=== PATIENT | male | born 1955 | race Caucasian/White ===

== ENCOUNTER → 2016-09-08 | Outpatient (CLI) | payer BC | LOC: RAD 07:29 | PROVIDERS: ATTEND Internal Medicine Gastroenterology | DX: R11.11 Vomiting without nausea (principal) | CPT/HCPCS: 78264; A9541 ==

== ENCOUNTER → 2016-09-10 | Outpatient (CLI) | payer BC | LOC: RAD 07:30 | PROVIDERS: ATTEND Internal Medicine Gastroenterology | DX: R11.11 Vomiting without nausea (principal) | CPT/HCPCS: 74249 ==

== ENCOUNTER 2016-10-20 13:18 | Observation (INO) | payer BC ==
[2016-10-20] MEDS ORDERED: LORAZEPAM INJ 2 MG/1 ML VIAL ONE (14:00)
[2016-10-20] MEDS ORDERED: REGADENOSON INJ 0.4 MG/5 ML DISP.SYRIN IV ONE (14:11)
[2016-10-20] MEDS ORDERED: ASPIRIN 81 MG TABLET, CHEWABLE PO ONE (14:13)
--- NOTE | 2016-10-20 14:13 | ER Document Report ---
ED General - General Chief Complaint: Chest Pain Stated Complaint: WEAKNESS Time seen by provider: 14:11 Mode of Arrival: Wheelchair Information source: Patient, Relative Notes: This is a 61-year-old man with a history of diabetes, syncope that is brought into the emergency room after experiencing an episode of chest pain, nausea, generalized weakness. The patient's states that they were at [employer] and she turned around when they were on line and the patient was holding his chest and stated that he had to "get to the truck". Patient was noticed to have stuttering speech and a tremor to the right upper extremity (no loss of consciousness, was talking the whole time). Patient's states that at baseline, he does ambulate with a cane, has an unsteady gait, is prone to fainting and has had tremors in the past (although not this bad). Patient has had a neurology workup including an EEG which showed no evidence of seizures. He does have an appointment with a neurologist tomorrow. They deny any fever, chills or vomiting. TRAVEL OUTSIDE OF THE [place] IN LAST 30 DAYS: No - HPI Onset: Just prior to arrival Onset/Duration: Sudden Quality of pain: Achy Severity: None Pain Level: Denies Associated symptoms: Chest pain. denies: Fever, Shortness of breath Exacerbated by: Denies Relieved by: Denies Similar symptoms previously: No Recently seen / treated by doctor: No - Related Data Allergies/Adverse Reactions: No Known Allergies Allergy (Verified 10/20/16 13:47) Home Medications: Current Home Medications Bupropion HCl [Wellbutrin Sr 100 mg Tablet] 300 mg PO Q12 10/20/16 [History] Cyanocobalamin (Vitamin B-12) [Vitamin B-12] 1,000 mcg SL DAILY 10/20/16 [ History] Duloxetine HCl [Cymbalta] 60 mg PO TID 10/20/16 [History] Ergocalciferol (Vitamin D2) [Vitamin D2] 50,000 units PO OQUENDO@1000 10/20/16 [ History] Ferrous Sulfate [Feosol 325 mg Tablet] 325 mg PO BIDPCBS 10/20/16 [History] Fluticasone Propionate [Flonase Nasal [place] 50 Mcg/[place] 16 gm] 1 spray NASL DAILY 10/20/16 [History] Mercaptopurine [Purinethol 50 mg Tablet] 75 mg PO DAILY 10/20/16 [History] Mesalamine [Delzicol] 800 mg PO BID 10/20/16 [History] Metformin HCl [Metformin HCl ER] 1,000 mg PO BIDPCBS 10/20/16 [History] Metoclopramide HCl [Reglan] 5 mg PO TIDHS 10/20/16 [History] Omeprazole 20 mg PO Q12 10/20/16 [History] Oxycodone HCl/Acetaminophen [Oxycodone-Acetaminophen 10-325] 1 each PO TIDP PRN 10/20/16 [History] Pregabalin [Lyrica] 200 mg PO Q8 10/20/16 [History] Tamsulosin HCl [Flomax 0.4 mg Cap.sr] 0.4 mg PO Q12 10/20/16 [History] Past Medical History - General Information source: Patient - Social History Smoking Status: Current Every Day Smoker Cigarette use (# per day): Yes - half a pack per day Chew tobacco use (# tins/day): No Smoking Education Provided: No Frequency of alcohol use: None Drug Abuse: None Lives with: Family Family History: None Patient has suicidal ideation: No Patient has homicidal ideation: No - Past Medical History Cardiac Medical History: Reports: Hx Hypercholesterolemia Neurological Medical History: Reports: Other - Tremors, gait instability ( followed up by neurologist) Endocrine Medical History: Reports: Hx Diabetes Mellitus Type 2 Renal/ Medical History: Reports: None Malignancy Medical History: Reports None GI Medical History: Reports: None Musculoskeltal Medical History: Reports Hx Arthritis Psychiatric Medical History: Reports: Hx Depression Past Surgical History: Reports: Other - Laser surgery on the eyes, cataracts. - Immunizations Hx Diphtheria, Pertussis, Tetanus Vaccination: Yes Review of Systems - Review of Systems Constitutional: denies: Chills, Fever EENT: No symptoms reported Cardiovascular: See HPI Respiratory: No symptoms reported Gastrointestinal: No symptoms reported Genitourinary: No symptoms reported Male Genitourinary: No symptoms reported Musculoskeletal: No symptoms reported Skin: No symptoms reported Hematologic/Lymphatic: No symptoms reported Neurological/Psychological: See HPI Physical Exam - Vital signs Vitals: Resp Pulse Ox 14 97 10/20/16 13:43 10/20/16 13:43 Notes: Physical exam: GENERAL: 61-year-old man, alert, stuttering, answering questions. He is oriented 3. HEAD: Atraumatic, normocephalic. EYES: Pupils equal round and reactive to light, extraocular movements intact, sclera anicteric, conjunctiva are normal. ENT: TMs normal, nares patent, oropharynx clear without exudates. Moist mucous membranes. NECK: Normal range of motion, supple without lymphadenopathy or JVD. LUNGS: Breath sounds clear to auscultation bilaterally and equal. No wheezes rales or rhonchi. HEART: Regular rate and rhythm without murmurs, rubs or gallops. ABDOMEN: Soft, normoactive bowel sounds. No tenderness to palpation. No guarding, no rebound. No masses appreciated. EXTREMITIES: Normal range of motion, no pitting or edema. No clubbing or cyanosis. NEUROLOGICAL: Cranial nerves II through XII: Stuttering words, states his has slurred speech. Moving all extremities. Good news agent. PSYCH: Normal mood, normal affect. SKIN: Warm, Dry, normal turgor, no rashes or lesions noted. Course - Vital Signs Vital signs: Temp Pulse Resp BP Pulse Ox 97.5 F 70 18 152/90 H 97 10/20/16 23:17 10/20/16 23:17 10/20/16 23:17 10/20/16 23:17 10/20/16 23:17 - Laboratory Result Diagrams: 10/20/16 13:35 10/20/16 13:35 Laboratory results interpreted by me: 10/20/16 10/20/16 10/20/16 13:35 13:35 13:35 RBC 3.71 L Hgb 12.7 L Hct 36.9 L MCV 99 H MCH 34.2 H RDW 15.8 H Lymphocytes % 8.9 L Magnesium 1.2 L* Creatine Kinase 38 L - Diagnostic Test Radiology reviewed: Image reviewed, Reports reviewed - Chest x-ray shows no infiltrates. CT of the head shows no acute changes. - EKG Interpretation by Me Rate: Normal Rhythm: NSR - EKG shows normal sinus rhythm with a ventricular rate of 95, no acute ST-T wave changes Discharge - Discharge Clinical Impression: chest pain, hypomagnesemia Condition: Stable Disposition: ADMITTED OBSERVATION Admitting Provider: Hospitalist - Dr. Reddy Unit Admitted: Telemetry
[2016-10-20] MEDS ORDERED: LORAZEPAM INJ 2 MG/1 ML VIAL IV ONE (14:15)
[2016-10-20 14:38] LABS: ALANINE AMINOTRANSFERASE 44 U/L (21-72); ALBUMIN 3.9 g/dL (3.5-5.0); ALKALINE PHOSPHATASE 125 U/L (38-126); ANION GAP 13 (5-19); ASPARTATE AMINO TRANSFERASE 40 U/L (17-59); BILIRUBIN,TOTAL 0.7 mg/dL (0.2-1.3); BLOOD UREA NITROGEN 18 mg/dL (7-20); CALCIUM 10.1 mg/dL (8.4-10.2); CARBON DIOXIDE 25 mmol/L (22-30); CHLORIDE 104 mmol/L (98-107); CREATINE KINASE 38 U/L (55-170); CREATININE RESULT 0.87 mg/dL (0.52-1.25); GLUCOSE 102 mg/dL (75-110); POTASSIUM 4.9 mmol/L (3.6-5.0); SODIUM 142.4 mmol/L (137-145); TOTAL PROTEIN 6.5 g/dL (6.3-8.2)
[2016-10-20 14:48] LABS: ABSOLUTE EOSINOPHILS # (AUTO) 0.1 10^3/uL (0.0-0.6); ABSOLUTE LYMPHOCYTES (AUTO) 0.5 10^3/uL (0.5-4.7); EOSINOPHILS % (AUTO) 1.3 % (0-6); HEMATOCRIT 36.9 % (37.9-51.0); HEMOGLOBIN 12.7 g/dL (13.5-17.0); HGB HCT DIFFERENCE 1.2; MEAN CORPUSCULAR HEMOGLOBIN 34.2 pg (27.0-33.4)
[2016-10-20] MEDS ORDERED: NORMAL SALINE 1000 ML 1,000 ML IV PRN ×2 (14:49→18:33)
[2016-10-20 14:50] LABS: CREATINE KINASE MB 0.34 ng/mL (<4.55)
[2016-10-20 14:53] LABS: ABSOLUTE MONOCYTES (AUTO) 0.7 10^3/uL (0.1-1.4); ABSOLUTE NEUT (AUTO) 3.9 10^3/uL (1.7-8.2); BASOPHILS % (AUTO) 0.3 % (0-2); LYMPHOCYTES % (AUTO) 8.9 % (13-45); MEAN CORPUSCULAR HGB CONC 34.4 g/dL (32.0-36.0); MEAN CORPUSCULAR VOLUME 99 fl (80-97); MONOCYTES % (AUTO) 12.7 % (3-13); RED BLOOD COUNT 3.71 10^6/uL (4.35-5.55); RED CELL DISTRIBUTION WIDTH 15.8 % (11.5-14.0); SEGMENTED NEUTROPHILS % (AUTO) 76.8 % (42-78); TROPONIN I < 0.012 ng/mL; WHITE BLOOD COUNT 5.1 10^3/uL (4.0-10.5)
[2016-10-20] MEDS: MAGNESIUM SULFATE/D5W 100 ML IV SCH ×2 (15:07→16:35)
[2016-10-20] MEDS ORDERED: MAGNESIUM SULFATE/D5W 100 ML IV SCH (18:30)
[2016-10-20] MEDS ORDERED: ONDANSETRON 4 MG TAB.RAPDIS PO PRN (18:33)
[2016-10-20] MEDS ORDERED: MORPHINE SULFATE 10 MG/ML INJ IV PRN (18:33)
[2016-10-20] MEDS ORDERED: MAG HYDROX/AL HYDROX/SIMETH SUSP 30 ML UDCUP PO PRN (18:33)
[2016-10-20] MEDS ORDERED: NITROGLYCERIN 0.4 MG/TAB 25 TAB/BOTTLE SL PRN (18:33)
[2016-10-20] MEDS ORDERED: INSULIN LISPRO 100 UNIT/ML 3 ML VIAL SUBCUT PRN (18:40)
[2016-10-20] MEDS ORDERED: GLUCAGON,HUMAN RECOMB 1 MG INJ IM PRN (18:40)
[2016-10-20] MEDS ORDERED: DEXTROSE 50%-WATER 25 GM/50 ML DISP.SYRIN IV PRN ×2 (18:40)
[2016-10-20] MEDS ORDERED: DEXTROSE 40% GEL 15 GM TUBE PO PRN ×2 (18:40)
[2016-10-20] MEDS ORDERED: LANSOPRAZOLE 15 MG TAB.RAP.DR PO ONE (19:15)
[2016-10-20 19:57] LABS: CREATINE KINASE MB 0.31 ng/mL (<4.55)
[2016-10-20 19:58] LABS: TROPONIN I < 0.012 ng/mL
[2016-10-20] MEDS ORDERED: NICOTINE 21 MG/24 HR PATCH.TD24 TD ONE (20:00)
--- NOTE | 2016-10-20 20:08 | EKG REPORT ---
SEVERITY:- BORDERLINE ECG - SINUS RHYTHM PROBABLE LEFT ATRIAL ABNORMALITY BORDERLINE LEFT AXIS DEVIATION : Confirmed by: Kapil Ramírez MD 20-Oct-2016 20:08:14
[2016-10-20] MEDS ORDERED: (PENDING PHARMACY ID) (Oxycodone Hcl/Acetaminophen [Oxycodone-Acetaminophen 10-325] 1 EACH PO PRN (23:15)
--- NOTE | 2016-10-20 23:29 | PDOC H&P ---
History of Present Illness Admission Date/PCP: 10/20/16 18:33 ZENA DOWD History of Present Illness: SURYA JEROME is a 61 year old male with past medical history of ulcerative colitis, diabetes mellitus, hyperlipidemia, neuropathy, anemia, previous CVA who presents to the emergency department with chest pain. Patient reports that he was walking in [place] when he began having stabbing chest pain that then turned and pressure complaint nausea and without diaphoresis or shortness of breath. Patient reports that he began having shakes of that he couldn't stand. He then reports that he did not loose consciousness. He reports he's been having dizzy spells that have been evaluated over the past year by both cardiology as well as neurology. She reports a prior stress test approximately one year ago that was negative. reports that he's also had echocardiogram , stress test, Holter monitor, EEG. Patient is referred to the hospital service for evaluation of chest pain. Past Medical History Past Medical History: ulcerative colitis, diabetes mellitus, hyperlipidemia, neuropathy, anemia, previous CVA Cardiac Medical History: Reports: Hyperlipidema Endocrine Medical History: Reports: Diabetes Mellitus Type 2 Musculoskeltal Medical History: Reports: Arthritis Psychiatric Medical History: Reports: Depression Past Surgical History Past Surgical History: Eye surgery Social History Smoking Status: Current Some Day Smoker Cigarettes Packs Per Day: 1 Frequency of Alcohol Use: None Amount of Alcoholic Beverages Per Day: history of alcohol abuse quit in 1997 Hx Recreational Drug Use: No Drugs: None Hx Prescription Drug Abuse: No - Advance Directive Resuscitation Status: Full Code Surrogate healthcare decision maker:: Marcela Jerome, Family History Family History: CAD, DM, Malignancy Parental Family History Reviewed: Yes Children Family History Reviewed: Yes Sibling(s) Family History Reviewed.: Yes Medication/Allergy Home Medications: Bupropion HCl [Wellbutrin Sr 100 mg Tablet] 300 mg PO Q12 10/20/16 Cyanocobalamin (Vitamin B-12) [Vitamin B-12] 1,000 mcg SL DAILY 10/20/16 Duloxetine HCl [Cymbalta] 60 mg PO TID 10/20/16 Ergocalciferol (Vitamin D2) [Vitamin D2] 50,000 units PO OQUENDO@1000 10/20/16 Ferrous Sulfate [Feosol 325 mg Tablet] 325 mg PO BIDPCBS 10/20/16 Fluticasone Propionate [Flonase Nasal [place] 50 Mcg/[place] 16 gm] 1 spray NASL DAILY 10/20/16 Mercaptopurine [Purinethol 50 mg Tablet] 75 mg PO DAILY 10/20/16 Mesalamine [Delzicol] 800 mg PO BID 10/20/16 Metformin HCl [Metformin HCl ER] 1,000 mg PO BIDPCBS 10/20/16 Metoclopramide HCl [Reglan] 5 mg PO TIDHS 10/20/16 Omeprazole 20 mg PO Q12 10/20/16 Oxycodone HCl/Acetaminophen [Oxycodone-Acetaminophen 10-325] 1 each PO TIDP PRN 10/20/16 Pregabalin [Lyrica] 200 mg PO Q8 10/20/16 Tamsulosin HCl [Flomax 0.4 mg Cap.sr] 0.4 mg PO Q12 10/20/16 Allergies/Adverse Reactions: No Known Allergies Allergy (Verified 10/20/16 13:47) Review of Systems Constitutional: PRESENT: weakness. ABSENT: chills, fever(s), headache(s), weight gain, weight loss Eyes: ABSENT: visual disturbances Ears: ABSENT: hearing changes Cardiovascular: PRESENT: as per HPI, chest pain. ABSENT: dyspnea on exertion, edema, orthropnea, palpitations Respiratory: ABSENT: cough, dyspnea, hemoptysis, sputum Gastrointestinal: PRESENT: constipation, diarrhea. ABSENT: abdominal pain, bloating, hematemesis, hematochezia, melena, nausea, vomiting Genitourinary: ABSENT: dysuria, hematuria Musculoskeletal: ABSENT: joint swelling Integumentary: ABSENT: rash, wounds Neurological: PRESENT: dizziness, numbness, tremor(s). ABSENT: abnormal gait, abnormal speech, confusion, focal weakness, syncope Psychiatric: ABSENT: anxiety, depression, homidical ideation, suicidal ideation Endocrine: ABSENT: cold intolerance, heat intolerance, polydipsia, polyuria Hematologic/Lymphatic: ABSENT: easy bleeding, easy bruising Physical Exam Vital Signs: Temp Pulse Resp BP Pulse Ox 97.6 F 69 14 141/85 H 95 10/20/16 18:34 10/20/16 18:34 10/20/16 20:31 10/20/16 20:46 10/20/16 20:46 Intake & Output 10/19/16 10/20/16 10/21/16 06:59 06:59 06:59 Weight 74.1 kg General appearance: PRESENT: no acute distress, well-developed, well-nourished Head exam: PRESENT: atraumatic, normocephalic Eye exam: PRESENT: conjunctiva pink, EOMI, PERRLA. ABSENT: scleral icterus Ear exam: PRESENT: normal external ear exam, TM's normal bilaterally Mouth exam: PRESENT: dry mucosa, tongue midline Teeth exam: PRESENT: poor dentation Neck exam: ABSENT: JVD, lymphadenopathy, thyromegaly, tracheal deviation Respiratory exam: PRESENT: clear to auscultation jeffry, prolonged expiratory phas , unlabored. ABSENT: accessory muscle use, crackles, rales, rhonchi, tachypnea , wheezes Cardiovascular exam: PRESENT: RRR, +S1, +S2. ABSENT: diastolic murmur, gallop, rubs, systolic murmur Pulses: PRESENT: normal dorsalis pedis pul Vascular exam: PRESENT: normal capillary refill GI/Abdominal exam: PRESENT: normal bowel sounds, soft. ABSENT: distended, firm , guarding, mass, organolmegaly, rebound, rigid, tenderness Rectal exam: PRESENT: deferred Extremities exam: PRESENT: full ROM. ABSENT: calf tenderness, clubbing, pedal edema Neurological exam: PRESENT: alert, awake, oriented to person, oriented to place , oriented to time, oriented to situation, CN II-XII grossly intact. ABSENT: motor sensory deficit Psychiatric exam: PRESENT: appropriate affect, normal mood. ABSENT: homicidal ideation, suicidal ideation Skin exam: PRESENT: dry, intact, warm. ABSENT: cyanosis, rash Results Laboratory Results: 10/20/16 19:15 CK-MB (CK-2) 0.31 Troponin I < 0.012 Impressions: Chest X-Ray 10/20/16 00:00 IMPRESSION: NO ACUTE RADIOGRAPHIC FINDING IN THE CHEST. Head CT 10/20/16 00:00 IMPRESSION: No acute intracranial abnormality identified. Chronic microvascular ischemic disease changes noted in the supratentorial white matter. Probable old lacunar infarct in the right frontal lobe. Overall CTs not significant change from prior study. Assessment & Plan - Diagnosis (1) Chest pain Qualifiers: Chest pain type: precordial pain Qualified Code(s): R07.2 - Precordial pain Is this a current diagnosis for this admission?: YesPlan: We'll place patient on observation and rule out for acute coronary syndrome. Will obtain nuclear stress test tomorrow in light of patient's underlying diabetes, hyperlipidemia, tobacco abuse and will check an FLP. Place patient on a kalyani and lisinopril as tolerated. Aspirin. Oxygen. Morphine. (2) Ulcerative colitis Qualifiers: Ulcerative colitis location: unspecified ulcerative colitis location Digestive disease complication type: unspecified complication Qualified Code(s): K51.919 - Ulcerative colitis, unspecified with unspecified complications Is this a current diagnosis for this admission?: YesPlan: Continue patient on mesalamine and mercaptopurine. (3) Anemia Qualifiers: Anemia type: B12 deficiency Vitamin B12 deficiency anemia type: unspecified B12 deficiency Qualified Code(s): D51.9 - Vitamin B12 deficiency anemia, unspecified Is this a current diagnosis for this admission?: YesPlan: Patient with known history of B-12 and iron deficiency anemia. Home medications (4) Chronic pain syndrome Is this a current diagnosis for this admission?: YesPlan: Continue patient's home medications. Patient reports underlying neuropathy. 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 Siding scale insulin. Diabetic diet. (7) Hypomagnesemia Is this a current diagnosis for this admission?: YesPlan: Likely secondary to chronic GI losses. Will give IV magnesium. Monitor for arrhythmia. - Time Time Spent: 50 to 70 Minutes Medications reviewed and adjusted accordingly: Yes Anticipated discharge: Home Within: within 24 hours - Inpatient Certification Based on my medical assessment, after consideration of the patient's comorbidities, presenting symptoms, or acuity I expect that the services needed warrant INPATIENT care.: No I certify that my determination is in accordance with my understanding of Medicare's requirements for reasonable and necessary INPATIENT services [42 CFR 412.3e].: No Post Hospital Care: D/C [place] Documentation
[2016-10-21 01:43] LABS: CREATINE KINASE MB 0.31 ng/mL (<4.55)
[2016-10-21 01:52] LABS: TROPONIN I < 0.012 ng/mL
[2016-10-21] MEDS ORDERED: MAGNESIUM SULFATE/D5W 1 GM/100 ML RTUPB IV ONE (02:15)
[2016-10-21] MEDS ORDERED: LANSOPRAZOLE 15 MG TAB.RAP.DR PO SCH (06:00)
[2016-10-21] MEDS: BUPROPION HCL 100 MG TABLET PO SCH ×2 (06:46→13:55)
[2016-10-21] MEDS: PREGABALIN 100 MG CAPSULE PO SCH ×2 (06:47→13:55)
[2016-10-21] MEDS ORDERED: OXYCODONE-ACETAMINOPHEN 5-325 MG TABLET PO PRN (07:13)
[2016-10-21] MEDS ORDERED: OXYCODONE HCL IR 5 MG TABLET PO PRN (07:14)
[2016-10-21 07:40] LABS: ANION GAP 12 (5-19); BLOOD UREA NITROGEN 17 mg/dL (7-20); CALCIUM 9.7 mg/dL (8.4-10.2); CARBON DIOXIDE 24 mmol/L (22-30); CHLORIDE 105 mmol/L (98-107); CHOLESTEROL 152.09 mg/dL (0-200); CREATINE KINASE 40 U/L (55-170); CREATININE RESULT 0.98 mg/dL (0.52-1.25); Direct HDL 38 mg/dL (>40); GLUCOSE 121 mg/dL (75-110); MAGNESIUM 1.9 mg/dL (1.6-2.3); POTASSIUM 4.7 mmol/L (3.6-5.0); SODIUM 141.1 mmol/L (137-145); TRIGLYCERIDES 219 mg/dL (<150)
[2016-10-21 07:51] LABS: CREATINE KINASE MB 0.31 ng/mL (<4.55); DIRECT LDL 82 mg/dL (<100)
[2016-10-21 07:52] LABS: TROPONIN I < 0.012 ng/mL; VLDL CHOLESTEROL 43.8 mg/dL (10-31)
[2016-10-21] MEDS ORDERED: METFORMIN HCL 500 MG TABLET PO SCH (08:00)
--- NOTE | 2016-10-21 08:27 | EKG REPORT ---
SEVERITY:- ABNORMAL ECG - SINUS RHYTHM SUPRAVENTRICULAR BIGEMINY : Confirmed by: Kapil Ramírez MD 21-Oct-2016 08:27:33
[2016-10-21] MEDS ORDERED: FERROUS SULFATE 325 MG TABLET PO SCH (09:00)
[2016-10-21] MEDS ORDERED: (PENDING PHARMACY ID) (Metformin Hcl [Metformin Hcl Er] 1,000 MG) PO SCH (09:00)
[2016-10-21] MEDS: METOCLOPRAMIDE HCL 10 MG TABLET PO SCH ×2 (09:23→13:54)
[2016-10-21] MEDS: DULOXETINE HCL 30 MG CAPSULE.DR PO SCH ×2 (09:26→13:55)
[2016-10-21] MEDS ORDERED: TAMSULOSIN HCL 0.4 MG CAP.SR.24H PO SCH (10:00)
[2016-10-21] MEDS ORDERED: ASPIRIN 325 MG TABLET, ENT COATED PO SCH (10:00)
[2016-10-21] MEDS ORDERED: MESALAMINE 400 MG CAPSULE.DR PO SCH (10:00)
[2016-10-21] MEDS ORDERED: NICOTINE 21 MG/24 HR PATCH.TD24 TD SCH (10:00)
[2016-10-21] MEDS ORDERED: CYANOCOBALAMIN (VITAMIN B-12) 1,000 MCG TABLET PO SCH (10:00)
[2016-10-21] MEDS ORDERED: BUPROPION HCL 150 MG PO SCH (10:00)
[2016-10-21] MEDS ORDERED: MERCAPTOPURINE 50 MG TABLET PO SCH (10:00)
[2016-10-21] MEDS ORDERED: FLUTICASONE NASAL SPRAY 50 MCG/SPRY 120 SPRAY/16 GM NASL SCH (10:00)
--- NOTE | 2016-10-21 14:09 | DRAGON STRESS TEST REPORT ---
INTRAVENOUS LEXISCAN CARDIOLITE STRESS TEST USING SINGLE PHOTON EMMISION COMPUTERIZED TOMOGRAPHIC. DATE OF PROCEDURE: October 21, 2016 INDICATION : Chest pain CARDIAC RISK FACTORS: Diabetes, dyslipidemia, tobacco abuse, family history of CAD RESTING EKG: Sinus rhythm, no Baseline ST segment changes noted STRESS EKG: No significant changes noted with LexiScan bolus REASON FOR TERMINATION: Protocol. PROCEDURE REPORT: Baseline heart rate 63 beats per minute with blood pressure of 158/95. Patient had no significant complaints. Heart rate at 2 minutes post bolus 78 with a blood pressure of 160/94. 3 minutes post bolus heart rate 75 with blood pressure of 167/87. No significant EKG changes were noted. Patient had no significant complaints during the procedure or postprocedure. CONCLUSIONS: Normal EKG and hemodynamic response to IV LexiScan. NUCLEAR DATA: At rest the patient was given 10.38 millicuries of technetium 99 sestamibi injected intravenously. As per protocol rest gated SPECT images were obtained. Subsequently the patient was given intravenous LexiScan at a dose of 0.4 mg in 5 mL intravenously, followed by flush with normal saline. Subsequently the stress dose of 32.3 millicuries of technetium 99 sestamibi was injected intravenously. As per protocol stress gated images were obtained. NUCLEAR INTERPRETATION: Both raw and processed data were used for interpretation. Visual, qualitative, computer-generated quantitative data was used. There was good myocardial uptake of technetium compound. Motion artifact and soft tissue attenuations were noted. Increased visceral uptake was noted. No definitive areas of transient perfusion defect noted. No definitive areas of fixed perfusion defect or scars noted. Borderline decreased uptake is noted in the basal anterior wall and is felt to be related to motion artifact. EKG gated imaging showed LV EF at 55 %, rest and stress gated EF similar visually. T. I D. ratio was 0.94. Lung heart ratio noted to be within normal limits 0.29. No significant extracardiac and abnormal radiotracer activities were noted. RV free wall uptake was noted to be WNL. IMPRESSION: Also refer to comments under nuclear interpretation. Also test results needs to be interpreted in the context of pretest probability. 1. There is no definitive scintigraphic evidence of LexiScan induced myocardial ischemia. 2. There is no definitive scintigraphic evidence of myocardial infarction/scar. 3. EKG gated imaging shows left ejection fraction of approximately 55 %. 4. Clinical correlation requested as occasionally single vessel disease or balanced ischemia could be missed. In approximately 10% of the cases Lexiscan may not cause adequate vasodilatory stress. RECOMMENDATIONS: Aggressive risk factor modification, medical therapy. Clinical correlation with echocardiogram derived ejection fraction. Inability to exercise by itself can lead to increased cardiovascular event risks. Consider cardiology consultation if clinically indicated. I AM AVAILABLE FOR CARDIOLOGY CONSULTATION AND FOLLOWUP IF REQUESTED BY PMD Victoria George M.D., ZULAY Capacity Planner kelp gatherer, Board certified in cardiovascular diseases, Nuclear cardiology, Echocardiography Cardiac CT and cardiac MRI Ph. [phone] [facility]
[2016-10-21 16:33] VITALS: BP 151/69
--- NOTE | 2016-10-21 19:18 | PDOC DISCHARGE SUMMARY ---
General - Admit/Disc Date/PCP Admission Date/Primary Care Provider: 10/20/16 18:33 ZENA DOWD Discharge Date: 10/21/16 - Discharge Diagnosis (1) Chest pain Is this a current diagnosis for this admission?: Yes (2) Ulcerative colitis Is this a current diagnosis for this admission?: Yes (3) Anemia Is this a current diagnosis for this admission?: Yes (4) Chronic pain syndrome Is this a current diagnosis for this admission?: Yes (5) BPH (benign prostatic hyperplasia) Is this a current diagnosis for this admission?: Yes (6) Diabetes mellitus Is this a current diagnosis for this admission?: Yes (7) Hypomagnesemia Is this a current diagnosis for this admission?: Yes - Additional Information Resuscitation Status: Full Code Discharge Diet: Cardiac, Diabetic Discharge Activity: Activity As Tolerated Home Medications: Cyanocobalamin (Vitamin B-12) [Vitamin B-12] 1,000 mcg SL DAILY 10/20/16 Duloxetine HCl [Cymbalta] 60 mg PO TID 10/20/16 Ergocalciferol (Vitamin D2) [Vitamin D2] 50,000 units PO OQUENDO@1000 10/20/16 Ferrous Sulfate [Feosol 325 mg Tablet] 325 mg PO BIDPCBS 10/20/16 Fluticasone Propionate [Flonase Nasal [place] 50 Mcg/[place] 16 gm] 1 spray NASL DAILY 10/20/16 Mercaptopurine [Purinethol 50 mg Tablet] 75 mg PO DAILY 10/20/16 Mesalamine [Delzicol] 800 mg PO BID 10/20/16 Metformin HCl [Metformin HCl ER] 1,000 mg PO BIDPCBS 10/20/16 Metoclopramide HCl [Reglan] 5 mg PO TIDHS 10/20/16 Omeprazole 20 mg PO Q12 10/20/16 Oxycodone HCl/Acetaminophen [Oxycodone-Acetaminophen 10-325] 1 each PO TIDP PRN 10/20/16 Pregabalin [Lyrica] 200 mg PO Q8 10/20/16 Tamsulosin HCl [Flomax 0.4 mg Cap.sr] 0.4 mg PO Q12 10/20/16 History of Present Illness History of Present Illness: SURYA HANNA is a 61 year old male with past medical history of ulcerative colitis, diabetes mellitus, hyperlipidemia, neuropathy, anemia, previous CVA who presents to the emergency department with chest pain. Patient reports that he was walking in [employer] when he began having stabbing chest pain that then turned and pressure complaint nausea and without diaphoresis or shortness of breath. Patient reports that he began having shakes of that he couldn't stand. He then reports that he did not loose consciousness. He reports he's been having dizzy spells that have been evaluated over the past year by both cardiology as well as neurology. She reports a prior stress test approximately one year ago that was negative. reports that he's also had echocardiogram , stress test, Holter monitor, EEG. Patient is referred to the hospital service for evaluation of chest pain. Hospital Course Hospital Course: Patient was admitted and ruled out for acute coronary syndrome. Patient had a nuclear stress test today which was found to be negative. Patient had improvement of his weakness with repletion of his magnesium. Discussed with patient importance of a good diet and stopping smoking. Discussed patient risk factor modification. For patient's extensive history of dizziness, have discussed with patient continuing his outpatient workup. Patient was noted to be on 600 mg of Wellbutrin daily patient was advised to take more than no more than 450 mg total in 24 hours. Patient was discharged in stable condition to his family. Physical Exam Vital Signs: Temp Pulse Resp BP Pulse Ox 97.7 F 89 20 151/69 H 97 10/21/16 16:28 10/21/16 16:28 10/21/16 16:28 10/21/16 16:28 10/21/16 16:28 Intake & Output 10/20/16 10/21/16 10/22/16 06:59 06:59 06:59 Intake Total 240 Output Total 800 Balance -560 Weight 74.1 kg Exam: General: Awake alert and oriented x3, no acute respiratory distress HEENT: AT/NC, PERRL, EOMI, oropharynx is moist, pink, no scleral icterus, no conjunctival injection Neck: No JVD, trachea midline Chest: Clear to auscultation bilaterally, no wheezes rhonchi or rales CV: Regular rate and rhythm, normal S1 and S2, no murmur, rub, or gallop Abdomen: Soft, nontender to palpation, nondistended, active bowel sounds; no rebound, rigidity, or guarding Extremities: No cyanosis, clubbing or edema Neuro: Cranial nerves II through XII are grossly intact without focal deficits; awake alert and oriented x3 Psych: Unusual mood and affect Results Laboratory Results: 10/21/16 07:03 10/21/16 07:03 Sodium 141.1 Potassium 4.7 Chloride 105 Carbon Dioxide 24 Anion Gap 12 BUN 17 Creatinine 0.98 Est GFR ( Amer) > 60 Est GFR (Non-Af Amer) > 60 Glucose 121 H Calcium 9.7 Magnesium 1.9 Triglycerides 219 H Cholesterol 152.09 LDL Cholesterol Direct 82 VLDL Cholesterol 43.8 H HDL Cholesterol 38 L 10/20/16 10/21/16 10/21/16 19:15 01:01 07:03 Creatine Kinase 40 L CK-MB (CK-2) 0.31 0.31 Troponin I < 0.012 < 0.012 10/21/16 07:03 Creatine Kinase CK-MB (CK-2) 0.31 Troponin I < 0.012 Impressions: Chest X-Ray 10/20/16 00:00 IMPRESSION: NO ACUTE RADIOGRAPHIC FINDING IN THE CHEST. Head CT 10/20/16 00:00 IMPRESSION: No acute intracranial abnormality identified. Chronic microvascular ischemic disease changes noted in the supratentorial white matter. Probable old lacunar infarct in the right frontal lobe. Overall CTs not significant change from prior study. Qualifiers PATEINT BEING DISCHARGED WITH ANY OF THE FOLLOWING DIAGNOSIS?: No Plan Time Spent: Greater than 30 Minutes
--- NOTE | 2016-10-22 09:07 | EKG REPORT ---
SEVERITY:- OTHERWISE NORMAL ECG - SINUS RHYTHM BORDERLINE LEFT AXIS DEVIATION : Confirmed by: Kapil Ramírez MD 22-Oct-2016 09:06:10
[2016-10-24] MEDS ORDERED: ERGOCALCIFEROL (VITAMIN D2) 50000 UNIT (1.25 MG) CAPSULE PO SCH (10:00)
== END 2016-10-21 17:15 | disposition home or self-care (01) ==
LOC: ER 13:18 → EH 18:33 → UNDOADMOB 18:39 → EH 18:39 → 4W 21:40
PROVIDERS: ADMIT Family Medicine; ATTEND Family Medicine
PROC: 3E033GC Introduction of Other Therapeutic Substance into Peripheral Vein, Percutaneous Approach (ICD-10-PCS; principal; 2016-10-20)
PROC: 3E033GC Introduction of Other Therapeutic Substance into Peripheral Vein, Percutaneous Approach (ICD-10-PCS; 2016-10-20)
PROC: 3E033GC Introduction of Other Therapeutic Substance into Peripheral Vein, Percutaneous Approach (ICD-10-PCS; 2016-10-20)
PROC: 3E0337Z Introduction of Electrolytic and Water Balance Substance into Peripheral Vein, Percutaneous Approach (ICD-10-PCS; 2016-10-20)
DX: R07.9 Chest pain, unspecified (principal); K51.90 Ulcerative colitis, unspecified, without complications; G89.4 Chronic pain syndrome; N40.0 Benign prostatic hyperplasia without lower urinary tract symptoms; E11.40 Type 2 diabetes mellitus with diabetic neuropathy, unspecified; E83.42 Hypomagnesemia; Z79.84 Long term (current) use of oral hypoglycemic drugs; Z86.73 Personal history of transient ischemic attack (TIA), and cerebral infarction without residual deficits; F17.210 Nicotine dependence, cigarettes, uncomplicated; E78.5 Hyperlipidemia, unspecified; D51.9 Vitamin B12 deficiency anemia, unspecified
CPT/HCPCS: 93005 ×2; 99285; 96361; 96375; 96365; 96366; 36415 ×2; 82553 ×2; 82962 ×2; 82550 ×2; 83735 ×2; 85025; 80048; 80053; 84484 ×2; 80061; 93017; 71010; 78452; 70450; 93010 ×2; A9500; J2785; J3490; J2060; J3475 ×2; J7030; Q9969

== ENCOUNTER → 2016-12-10 | Outpatient (CLI) | payer BC | LOC: RAD 08:16 | PROVIDERS: ATTEND Family Medicine | DX: Z12.2 Encounter for screening for malignant neoplasm of respiratory organs (principal); F17.210 Nicotine dependence, cigarettes, uncomplicated | CPT/HCPCS: G0297 ==

== ENCOUNTER → 2018-05-25 | Outpatient (CLI) | payer MEDICARE, OTHER ==
--- NOTE | 2018-05-25 12:53 | RADIOLOGY REPORT (SQ) ---
EXAM DESCRIPTION: NM GASTRIC EMPTYING STUDY COMPLETED DATE/TIME: 05/25/2018 12:43 pm REASON FOR STUDY: GASTROPARESIS (K31.84) K31.84 GASTROPARESIS COMPARISON: 09/08/2016 gastric emptying study RADIONUCLIDE AND DOSE: 2.1 millicuries Tc-99m Sulfur Colloid. A wide variety of solid foods have been used. The route of agent administration: Oral. TECHNIQUE: 1 minute serial static imaging performed at time of meal, 1 hour, 2 hours, 3 hours, and 4 hours as needed. Once stomach reaches 90% emptying, the test is complete. Image intensity values pl otted with respect to time with linear regression algorithm. LIMITATIONS: None. FINDINGS: Patient was observed for 4 hours. Immediate post meal serves as baseline. Gastric emptying at 30 minutes was 12% Gastric emptying at 60 minutes was 23% Gastric emptying at 90 minutes was 35%. Gastric emptying at 120 minutes was 46% Gastric emptying at 240 minutes was 92%. Normal values: 60 minutes: 30-90% retained. If less than 30%, abnormally rapid emptying. If greater than 90%, del ayed gastric emptying. 120 minutes: <60% retained. If greater than 60%, delayed gastric emptying. 240 minutes: <10% retained. If greater than 10%, delayed gastric emptying. IMPRESSION: NORMAL GASTRIC EMPTYING. TECHNICAL DOCUMENTATION: JOB ID: [id number] All Rights Reserved Reading location - IP/workstation name: [email or web address]
== END ==
LOC: RAD 07:38
PROVIDERS: ATTEND Internal Medicine Gastroenterology
DX: K31.84 Gastroparesis (principal)
CPT/HCPCS: 78264; A9541